=== PATIENT | male | born 1945 | race Caucasian/White ===

== ENCOUNTER 2019-06-01 15:03 | Emergency (ER) | payer MEDICARE ==
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
== END 2019-06-01 17:45 | disposition home or self-care (01) ==
LOC: ERS 15:03
DX: M54.5 Low back pain (principal); M54.2 Cervicalgia; E11.9 Type 2 diabetes mellitus without complications; F32.9 Major depressive disorder, single episode, unspecified; V43.62XA Car passenger injured in collision with other type car in traffic accident, initial encounter
CPT/HCPCS: 70450; 72125; 72131; 93005

== ENCOUNTER 2019-10-21 14:08 | Inpatient (IN) | payer MEDICARE, OTHER ==
--- NOTE | 2019-10-21 14:30 | RAD ---
EXAM: CHEST ONE VIEW HISTORY: Fever COMPARISON: None FINDINGS: Dual lead left subclavian AICD device is noted. Median sternotomy wires are present. Cardiac fat pad is seen in the left lung base of the cardiac silhouette is prominent but also magnified by projection. Pulmonary vasculature is within normal limits. No consolidation or pleural fluid is seen. There is suggestion of remote bilateral rib fractures bilaterally. IMPRESSION: No acute cardiopulmonary process.
[2019-10-21 14:33] LABS: Base Excess-Venous -0.3 mmol/L (-2.0 to 3.0); Bicarbonate (HCO3v) 22.9 mmol/L (22.0-28.0); CO2 Tension (PvCO2) 32.2 mmHg (40.0-50.0); Calcium, Ionized 1.04 mmol/L (See Comments:); Chloride 100 mmol/L (98-107); Hemoglobin - Calc 12.5 g/dL (14.0-18.0); Sodium 137 mmol/L (138-145); T. Carbon Dioxide 23.9 mmol/L (22.0-28.0); vO2 Saturation-calc 89.5 % (60.0-85.0)
[2019-10-21] MEDS ORDERED: Cefepime 2 GM VIAL ONE (14:44)
[2019-10-21 14:49] LABS: INR-International Normal Ratio 1.8; PTT 35.3 SEC (22.9-36.1); Prothrombin Time 20.6 SEC (12.0-14.7)
[2019-10-21 14:52] LABS: #Basophils 0.1 thou/uL (0.0-0.2); #Lymphocytes 0.5 thou/uL (1.20-3.40); #Monocytes 0.4 thou/uL (0.11-0.59); %Basophils 0.7 % (0.0-1.0); %Eosinophils 0.2 % (0.0-10.0); %Lymphocytes 3.1 % (21.0-51.0); %Monocytes 2.5 % (0.0-10.0); %Neutrophils 93.6 % (42.0-75.0); Hemoglobin 12.1 g/dL (14.0-18.0); Mean Corpuscular HGB CONC 30.3 g/dL (32.0-36.0); Mean Corpuscular Hemoglobin 31.7 pg (27.0-31.0); Mean Platelet Volume 10.6 fL (7.4-10.4); Platelet Count 114 thou/uL (130-400); RBC Distribution Width 13.4 % (11.5-14.5); Red Blood Cell (RBC) Count 3.81 mill/uL (4.70-6.10); White Blood Cell (WBC) Count 17.1 thou/uL (4.8-10.8)
[2019-10-21 15:06] LABS: ALT (SGPT) 24 U/L (8-55); AST (SGOT) 43 U/L (5-34); Albumin 3.7 g/dL (3.4-4.8); Alkaline Phosphatase 120 U/L (40-110); Anion Gap 21 mmol/L (10-20); BUN (Urea Nitrogen) 38 mg/dL (8.4-25.7); Bilirubin, Total 1.9 mg/dL (0.2-1.2); Calc. Creatinine Clearance 0 mL/min (70-130); Calcium 9.2 mg/dL (7.8-10.44); Carbon Dioxide 22 mmol/L (23-31); Chloride 99 mmol/L (98-107); Estimated GFR-MDRD 35; Globulin 4.2 g/dL (2.4-3.5); Glucose 411 mg/dL (83-110); Potassium 4.3 mmol/L (3.5-5.1); Protein, Total 7.9 g/dL (5.8-8.1); Sodium 138 mmol/L (136-145)
[2019-10-21 15:10] LABS: MDiff Complete? YES; Macrocytosis SLIGHT = 6-15 cells (100X) (0-5/hpf); Platelet Morphology Comment Appears Decreased; Polychromasia SLIGHT = 2-3 cells (100X) (0-2/hpf)
[2019-10-21] MEDS ORDERED: diphenhydrAMINE 25 MG CAP ONE (15:58)
[2019-10-21 16:08] LABS: Bilirubin Negative (Negative); Blood, Urine Negative (Negative); Clarity Clear (Clear); Glucose, Urine (Dipstick) Greater than 1000 mg/dL (Negative); Leukocyte Negative Leu/uL (Negative); Nitrite Negative (Negative); Protein, Urine (Dipstick) 20 mg/dL (Neg-Trace); Urobilinogen Normal mg/dL (Less than 2)
[2019-10-21 17:49] LABS: Lactic Acid 3.8 mmol/L (0.5-2.2)
[2019-10-21] MEDS ORDERED: Fentanyl 100 MCG/2 ML VIAL ONE (17:55)
[2019-10-21 19:08] VITALS: BMI 50.2
[2019-10-21] MEDS ORDERED: Dextrose 5% in Water 1,000 ML IV PRN (20:37)
[2019-10-21] MEDS ORDERED: Ondansetron PF 4 MG/2 ML Vial IVP PRN (20:37)
[2019-10-21] MEDS ORDERED: Ondansetron ODT 4 MG TAB PO PRN (20:37)
[2019-10-21] MEDS ORDERED: Dextrose 50% Abboject 50 ML SYRINGE SLOW IVP PRN (20:37)
[2019-10-21] MEDS ORDERED: Acetaminophen 325 MG TAB PO PRN (20:37)
[2019-10-21] MEDS ORDERED: HumaLOG 300 UNITS/3 ML VIAL SC PRN ×2 (20:37)
[2019-10-21] MEDS ORDERED: Acetaminophen 650 MG Suppository PR PRN (20:37)
[2019-10-21] MEDS ORDERED: traMADol HCl 50 MG TAB PO PRN (20:40)
[2019-10-21] MEDS ORDERED: Sodium Chloride 0.9% 1,000 ML IV SCH (20:45)
[2019-10-21] MEDS ORDERED: Atorvastatin Calcium 20 MG TAB PO SCH (21:00)
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
[2019-10-21] MEDS: diphenhydrAMINE 25 MG CAP PO PRN (21:44)
[2019-10-21] MEDS: Insulin Glargine 70 UNITS in Pre-Filled Syringe 1 EACH SC SCH (22:45)
[2019-10-21] MEDS: Apixaban 5 MG TAB PO SCH (22:45)
[2019-10-21] MEDS: Famotidine/PF 20 mg/2ml Vial SLOW IVP SCH (22:45)
[2019-10-21] MEDS: Sodium Chloride 0.9% 1,000 ML IV SCH (22:47)
--- NOTE | 2019-10-21 22:52 | CT ---
EXAM: CT Lower Ext Lt WO Con DATE: 10/21/2019 8:22 PM INDICATION: Evaluate for osteomyelitis of the left lower extremity; erythema and swelling of the ent jabire left lower extremity COMPARISON: None. FINDING: There is extensive skin thickening involving the lower abdominal wall pannus suspicious for panniculitis. There is prominent reticulation and edema involving the left lower extremity subcutaneous fat. There is prominent muscular atrophy of the musculature of the left lower extremity, particularly the left hamstrings and foreleg musculature. There is postprocedural change of a partial ostectomy involving the calcaneus. There is extensive surgical fixation of prior fractures of the left lower extremity. There is a healed instrumented left hip fracture. There is a retrograde intramedullary veronika within the left femur with surrounding periprosthetic lucency. There is a hypertro phic nonunion involving the distal left femoral shaft. There is a healed instrumented proximal tibia and distal tibia fractures. There is healed instrumented distal fibular fracture. Prominent deg enerative changes seen involving the left foot with diffuse osteopenia. IMPRESSION: 1. Extensive skin thickening and left lower extremity edema can be seen with cellulitis. 2. 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 There is prominent lucency surrounding the retrograde intramedullary veronika present within the left femur which can be seen with loosening or infection. 3. Healed instrumented left hip fracture, left tibia and fibula fractures. 4. Partial ostectomy of the calcaneus. 5. Moderate lower abdominal wall panniculitis
[2019-10-22] MEDS: Cefepime 2 GM in Sodium Chloride 0.9% 100 ML IVPB SCH ×2 (02:07→13:35)
[2019-10-22] MEDS: HYDROcodone/Acetaminophen 7.5/325 mg Tablet PO PRN ×4 (02:08→20:54)
[2019-10-22] MEDS: Vancomycin HCl 750 MG in Sodium Chloride 0.9% 250 ML 250 ML IVPB SCH ×2 (03:27→15:52)
[2019-10-22] MEDS ORDERED: Vancomycin HCl 1.75 GM in Sodium Chloride 0.9% 500 ML IVPB SCH (04:00)
[2019-10-22 04:14] LABS: #Lymphocytes 0.8 thou/uL (1.20-3.40); #Monocytes 0.7 thou/uL (0.11-0.59); #Neutrophils 13.9 thou/uL (1.40-6.50); %Basophils 0.1 % (0.0-1.0); %Eosinophils 0.2 % (0.0-10.0); %Lymphocytes 5.2 % (21.0-51.0); %Monocytes 4.7 % (0.0-10.0); %Neutrophils 89.8 % (42.0-75.0); Hemoglobin 11.7 g/dL (14.0-18.0); Mean Corpuscular HGB CONC 31.6 g/dL (32.0-36.0); Mean Corpuscular Hemoglobin 33.4 pg (27.0-31.0); Mean Platelet Volume 10.7 fL (7.4-10.4); Platelet Count 102 thou/uL (130-400); RBC Distribution Width 13.5 % (11.5-14.5); Red Blood Cell (RBC) Count 3.49 mill/uL (4.70-6.10); White Blood Cell (WBC) Count 15.5 thou/uL (4.8-10.8)
[2019-10-22 04:21] LABS: Lactic Acid 2.7 mmol/L (0.5-2.2)
[2019-10-22 04:28] LABS: Anion Gap 13 mmol/L (10-20); BUN (Urea Nitrogen) 36 mg/dL (8.4-25.7); Calc. Creatinine Clearance 94 mL/min (70-130); Calcium 8.9 mg/dL (7.8-10.44); Carbon Dioxide 24 mmol/L (23-31); Chloride 103 mmol/L (98-107); Estimated GFR-MDRD 44; Glucose 421 mg/dL (83-110); Potassium 4.1 mmol/L (3.5-5.1); Sodium 136 mmol/L (136-145)
[2019-10-22] MEDS: HumaLOG 300 UNITS/3 ML VIAL SC PRN ×2 (05:24→12:08)
[2019-10-22] MEDS: Famotidine/PF 20 mg/2ml Vial SLOW IVP SCH (08:35)
[2019-10-22] MEDS: Apixaban 5 MG TAB PO SCH ×2 (08:35→20:52)
[2019-10-22] MEDS: HumaLOG 300 UNITS/3 ML VIAL SC SCH ×3 (08:36→16:49)
[2019-10-22] MEDS: Insulin Glargine 70 UNITS in Pre-Filled Syringe 1 EACH SC SCH ×2 (08:39→21:01)
[2019-10-22] MEDS ORDERED: Collagenase 250 UNITS/GM Ointment 30 GM TUBE TOP SCH (09:00)
[2019-10-22] MEDS ORDERED: Ferrous Sulfate 325 MG TAB PO SCH (09:00)
[2019-10-22] MEDS: diphenhydrAMINE 25 MG CAP PO PRN ×3 (09:40→20:53)
[2019-10-22] MEDS ORDERED: Artificial Tears 18 DROP/0.9 ML EA EYE PRN ×2 (11:44→17:54)
[2019-10-22] MEDS ORDERED: Cepastat Lozenges 1 LOZ PO PRN ×2 (11:44→17:54)
[2019-10-22] MEDS ORDERED: Loperamide HCl 2 MG CAP PO PRN ×2 (11:44→17:55)
[2019-10-22] MEDS ORDERED: Sodium Chloride 0.65% Nasal 44 ML BOT EA NARE PRN ×2 (11:44→17:55)
[2019-10-22] MEDS ORDERED: Bisacodyl 10 MG SUPP PR PRN ×2 (11:44→17:54)
[2019-10-22] MEDS ORDERED: hydrALAZINE 20 MG/ML VIAL SLOW IVP PRN ×2 (11:44→17:55)
[2019-10-22] MEDS ORDERED: Senokot S 8.6-50 MG TAB PO PRN ×2 (11:44→17:55)
[2019-10-22] MEDS ORDERED: Diabetic Tussin 200 MG/10 ML UDCUP PO PRN ×2 (11:44→17:55)
[2019-10-22] MEDS ORDERED: Nystatin Powder 15 GM BOT TOP PRN ×2 (11:45→17:55)
--- NOTE | 2019-10-22 13:31 | PDOC.HOSPP ---
- Subjective Encounter Date: 10/22/19 Encounter Time: 10:45 Subjective: Patient seen and examined. No new complaints. No overnight events - Objective Vital Signs & Weight: Vital Signs (12 hours) Temp Pulse Resp BP Pulse Ox Pulse Ox 10/22/19 11:46 97.6 F 76 16 107/65 96 10/22/19 09:03 97 10/22/19 08:58 97 10/22/19 07:44 98.4 F 90 16 104/52 L 97 10/22/19 05:54 100.6 F H 91 18 117/61 95 Weight Admit Weight 340 lb Weight 340 lb 2 oz I&O: 10/21/19 10/22/19 10/23/19 06:59 06:59 06:59 Intake Total 1580 Output Total 200 Balance 1380 Result Diagrams: 10/22/19 03:51 10/22/19 03:51 Additional Labs: Accuchecks 10/22/19 10/22/19 10/21/19 11:53 05:22 21:28 POC Glucose 324 H 392 H 439 H Radiology Reviewed by me: Yes EKG Reviewed by me: Yes Hospitalist ROS - Review of Systems Constitutional: reports: fever, weakness. denies: chills, sweats, malaise, other ENT: denies: ear pain, ear discharge, nose pain, nose discharge, nose congestion , mouth pain, mouth swelling, throat pain, throat swelling, other Respiratory: denies: cough, dry, shortness of breath, hemoptysis, SOB with excertion, pleuritic pain, sputum, wheezing, other Cardiovascular: denies: chest pain, palpitations, orthopnea, paroxysmal noc. dyspnea, edema, light headedness, other Gastrointestinal: denies: nausea, vomiting, abdominal pain, diarrhea, constipation, melena, hematochezia, other Genitourinary: denies: dysuria, frequency, incontinence, hematuria, retention, other Musculoskeletal: reports: leg pain. denies: neck pain, shoulder pain, arm pain , back pain, hand pain, foot pain, other Skin: denies: rash, lesions, chance, bruising, other - Medication Medications: Active Medications Generic Name Dose Route Start Last Admin Trade Name Freq PRN Reason Stop Dose Admin Acetaminophen 650 mg 10/21/19 20:37 10/22/19 05:59 Tylenol PO 650 mg Q4H PRN Administration Headache/Fever/Mild Pain (1-3) Hydrocodone Bitart/Acetaminophen 1 tab 10/21/19 20:34 10/22/19 08:35 [place] 7.5/325 PO 1 tab Q4H PRN Administration Moderate to Severe Pain (6-10) Apixaban 5 mg 10/21/19 21:00 10/22/19 08:35 Eliquis PO 5 mg BID NEGRITA Administration Atorvastatin Calcium 20 mg 10/21/19 21:00 10/21/19 22:45 Lipitor PO 20 mg HS NEGRITA Administration Collagenase 0 gm 10/22/19 09:00 10/22/19 12:14 Santyl 250 Units/Gram Ointment TOP Not Given DAILY NEGRITA Diphenhydramine HCl 25 mg 10/21/19 20:33 10/22/19 09:40 Benadryl PO 25 mg Q4H PRN Administration Itching Ferrous Sulfate 325 mg 10/22/19 09:00 10/22/19 08:35 Feosol PO 325 mg DAILY NEGRITA Administration Cefepime HCl 2 gm/ Sodium 100 mls @ 200 mls/hr 10/22/19 02:00 10/22/19 02:07 Chloride IVPB 100 mls 0200,1400 NEGRITA Administration Insulin Glargine 70 units/ 0.7 mls @ 0 mls/hr 10/21/19 21:00 10/22/19 08:39 Miscellaneous Medication SC 0.7 mls BID NEGRITA Administration Sodium Chloride 1,000 mls @ 60 mls/hr 10/21/19 21:33 10/21/19 22:47 Normal Saline 0.9% IV 1,000 mls .[id number] NEGRITA Administration Vancomycin HCl 750 mg/ Sodium 250 mls @ 250 mls/hr 10/22/19 04:00 10/22/19 03 :27 Chloride IVPB 250 mls 0400,1600 NEGRITA Administration Insulin Human Lispro 0 units 10/21/19 20:37 10/21/19 22:45 Humalog SC 5 unit .BEDTIME SLIDING SC PRN Administration Bedtime Correctional Scale Insulin Human Lispro 60 units 10/22/19 07:30 10/22/19 12:08 Humalog SC 60 unit AC NEGRITA Administration Insulin Human Lispro 0 units 10/21/19 20:42 10/22/19 12:08 Humalog SC 11 unit .AGGRESSIVE SLIDING PRN Administration Aggressive Correctional Scale Metoprolol Succinate 25 mg 10/22/19 09:00 10/22/19 08:35 Toprol Xl PO 25 mg DAILY NEGRITA Administration Sodium Chloride 10 ml 10/21/19 20:37 10/22/19 08:41 Flush - Normal Saline IVF 10 ml PRN PRN Administration Saline Flush - Exam General Appearance: NAD, awake alert Eye: PERRL, anicteric sclera ENT: normocephalic atraumatic, no oropharyngeal lesions Neck: supple, symmetric, no JVD, no thyromegaly Heart: RRR, no murmur, no gallops, no rubs Respiratory: CTAB, no wheezes, no rales, no ronchi Gastrointestinal: soft, non-tender, non-distended, normal bowel sounds Gastrointestinal - other findings: morbid obesity+ Extremities: no edema Extremities - other findings: left leg cellulitis Skin: normal turgor, no lesions Musculoskeletal: normal tone, normal strength Psychiatric: normal affect, normal behavior Hosp A/P (1) Sepsis Code(s): A41.9 - SEPSIS, UNSPECIFIED ORGANISM Status: Acute Qualifiers: Sepsis acute organ dysfunction status: with acute organ dysfunction Severe sepsis acute organ dysfunction type: acute renal failure Severe sepsis shock status: without septic shock (2) Acute worsening of stage 3 chronic kidney disease Code(s): N18.3 - CHRONIC KIDNEY DISEASE, STAGE 3 (MODERATE) Status: Acute (3) Wound of foot Code(s): S91.309A - UNSPECIFIED OPEN WOUND, UNSPECIFIED FOOT, INITIAL ENCOUNTER Status: Acute (4) Left leg cellulitis Code(s): L03.116 - CELLULITIS OF LEFT LOWER LIMB Status: Acute (5) Hyperglycemia due to type 2 diabetes mellitus Code(s): E11.65 - TYPE 2 DIABETES MELLITUS WITH HYPERGLYCEMIA Status: Acute (6) Lactic acidosis Code(s): E87.2 - ACIDOSIS Status: Acute (7) Morbid obesity with BMI of 50.0-59.9, adult Code(s): E66.01 - MORBID (SEVERE) OBESITY DUE TO EXCESS CALORIES; Z68.43 - BODY MASS INDEX (BMI) 50.0-59.9, ADULT Status: Chronic (8) BLAYNE on CPAP Code(s): G47.33 - OBSTRUCTIVE SLEEP APNEA (ADULT) (PEDIATRIC); Z99.89 - DEPENDENCE ON OTHER ENABLING MACHINES AND DEVICES Status: Chronic (9) Anxiety and depression Code(s): F41.9 - ANXIETY DISORDER, UNSPECIFIED; F32.9 - MAJOR DEPRESSIVE DISORDER, SINGLE EPISODE, UNSPECIFIED Status: Chronic (10) Atrial fibrillation Code(s): I48.91 - UNSPECIFIED ATRIAL FIBRILLATION Status: Chronic Qualifiers: Atrial fibrillation type: paroxysmal Qualified Code(s): I48.0 - Paroxysmal atrial fibrillation (11) Macrocytic anemia Code(s): D53.9 - NUTRITIONAL ANEMIA, UNSPECIFIED Status: Chronic (12) Chronic anticoagulation Code(s): Z79.01 - GROUP HOME (CURRENT) USE OF ANTICOAGULANTS Status: Chronic - Plan old records reviewed/req, plan discussed w/ family, continue antibiotics 10/22/19 continue cefepime and vancomycin ID consulted follow culture home medication reconciled discussed with add folic acid and vitamin B12 repeat labs tomorrow wound care
[2019-10-22] MEDS: Sodium Chloride 0.9% 1,000 ML IV SCH ×3 (14:50→21:00)
[2019-10-22] MEDS ORDERED: cefTRIAXone\\ROCEPHIN 2 GM in Sodium Chloride 0.9% 100 ML IVPB SCH (17:30)
[2019-10-22] MEDS ORDERED: Dextrose 50% Abboject 50 ML SYRINGE SLOW IVP PRN (17:49)
[2019-10-22] MEDS ORDERED: Acetaminophen 325 MG TAB PO PRN (17:49)
[2019-10-22] MEDS ORDERED: Dextrose 5% in Water 1,000 ML IV PRN (17:49)
[2019-10-22] MEDS ORDERED: HumaLOG 300 UNITS/3 ML VIAL SC PRN ×2 (17:49→17:52)
[2019-10-22] MEDS ORDERED: Ondansetron ODT 4 MG TAB PO PRN (17:50)
[2019-10-22] MEDS ORDERED: Ondansetron PF 4 MG/2 ML Vial IVP PRN (17:50)
[2019-10-22] MEDS ORDERED: traMADol HCl 50 MG TAB PO PRN (17:52)
[2019-10-22] MEDS: cefTRIAXone\\ROCEPHIN 2 GM in Sodium Chloride 0.9% 100 ML IVPB SCH (18:16)
[2019-10-22] MEDS: Atorvastatin Calcium 20 MG TAB PO SCH (20:52)
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
[2019-10-23] MEDS: diphenhydrAMINE 25 MG CAP PO PRN ×3 (02:11→20:26)
[2019-10-23] MEDS: HYDROcodone/Acetaminophen 7.5/325 mg Tablet PO PRN ×4 (02:12→20:27)
[2019-10-23] MEDS: HumaLOG 300 UNITS/3 ML VIAL SC SCH ×3 (07:30→18:03)
[2019-10-23] MEDS ORDERED: Cyanocobalamin (Vitamin B-12) 1,000 MCG TAB PO SCH (09:00)
[2019-10-23] MEDS ORDERED: Saccharomyces boulardii 250 MG CAP PO SCH (09:00)
[2019-10-23] MEDS ORDERED: Folic Acid 1 MG TAB PO SCH (09:00)
[2019-10-23] MEDS: Saccharomyces boulardii 250 MG CAP PO SCH (09:11)
[2019-10-23] MEDS: Ferrous Sulfate 325 MG TAB PO SCH (09:11)
[2019-10-23] MEDS: Insulin Glargine 70 UNITS in Pre-Filled Syringe 1 EACH SC SCH ×2 (09:12→20:29)
[2019-10-23] MEDS: Folic Acid 1 MG TAB PO SCH (09:12)
[2019-10-23] MEDS: Apixaban 5 MG TAB PO SCH ×2 (09:12→20:27)
[2019-10-23] MEDS: Cyanocobalamin (Vitamin B-12) 1,000 MCG TAB PO SCH (09:12)
[2019-10-23] MEDS: Collagenase 250 UNITS/GM Ointment 30 GM TUBE TOP SCH (09:13)
--- NOTE | 2019-10-23 11:20 | PDOC.HOSPP ---
- Subjective Encounter Date: 10/23/19 Encounter Time: 10:00 Subjective: Patient seen and examined. No new complaints. No overnight events - Objective Vital Signs & Weight: Vital Signs (12 hours) Temp Pulse Resp BP Pulse Ox 10/23/19 09:00 98 10/23/19 07:39 97.5 F L 70 20 159/84 H 98 10/23/19 03:59 98.1 F 72 17 112/64 96 Weight Admit Weight 340 lb Weight 340 lb 2 oz I&O: 10/22/19 10/23/19 10/24/19 06:59 06:59 06:59 Intake Total 1580 2520 Output Total 200 1200 Balance 1380 1320 Result Diagrams: 10/22/19 03:51 10/22/19 03:51 Additional Labs: Accuchecks 10/23/19 10/22/19 10/22/19 04:06 19:52 16:51 POC Glucose 152 H 118 H 136 H 10/22/19 11:53 POC Glucose 324 H Hospitalist ROS - Review of Systems Constitutional: denies: fever, chills, sweats, weakness, malaise, other Respiratory: denies: cough, dry, shortness of breath, hemoptysis, SOB with excertion, pleuritic pain, sputum, wheezing, other Cardiovascular: denies: chest pain, palpitations, orthopnea, paroxysmal noc. dyspnea, edema, light headedness, other Gastrointestinal: denies: nausea, vomiting, abdominal pain, diarrhea, constipation, melena, hematochezia, other Genitourinary: denies: dysuria, frequency, incontinence, hematuria, retention, other Musculoskeletal: reports: leg pain. denies: neck pain, shoulder pain, arm pain , back pain, hand pain, foot pain, other - Medication Medications: Active Medications Generic Name Dose Route Start Last Admin Trade Name Freq PRN Reason Stop Dose Admin Hydrocodone Bitart/Acetaminophen 1 tab 10/22/19 17:49 10/23/19 09:09 [place] 7.5/325 PO 1 tab Q4H PRN Administration Moderate to Severe Pain (6-10) Apixaban 5 mg 10/22/19 21:00 10/23/19 09:12 Eliquis PO 5 mg BID NEGRITA Administration Atorvastatin Calcium 20 mg 10/22/19 21:00 10/22/19 20:52 Lipitor PO 20 mg HS NEGRITA Administration Cholecalciferol 1,000 units 10/23/19 09:00 10/23/19 09:11 Vitamin D3 PO 1,000 units DAILY NEGRITA Administration Collagenase 0 gm 10/23/19 09:00 10/23/19 09:13 Santyl 250 Units/Gram Ointment TOP 1 gm DAILY NEGRITA Administration Cyanocobalamin 1,000 mcg 10/23/19 09:00 10/23/19 09:12 Vitamin B-12 PO 1,000 mcg DAILY NEGRITA Administration Diphenhydramine HCl 25 mg 10/22/19 17:48 10/23/19 09:09 Benadryl PO 25 mg Q4H PRN Administration Itching Ferrous Sulfate 325 mg 10/23/19 09:00 10/23/19 09:11 Feosol PO 325 mg DAILY NEGRITA Administration Folic Acid 1 mg 10/23/19 09:00 10/23/19 09:12 Folvite PO 1 mg DAILY NEGRITA Administration Insulin Glargine 70 units/ 0.7 mls @ 0 mls/hr 10/22/19 21:00 10/23/19 09:12 Miscellaneous Medication SC 0.7 mls BID NEGRITA Administration Sodium Chloride 1,000 mls @ 60 mls/hr 10/22/19 18:00 10/22/19 21:00 Normal Saline 0.9% IV 1,000 mls .[id number] NEGRITA Administration Ceftriaxone Sodium 2 gm/ 100 mls @ 200 mls/hr 10/22/19 18:00 10/22/19 18:16 Sodium Chloride IVPB 100 mls Q24HR NEGRITA Administration Insulin Human Lispro 60 units 10/23/19 07:30 10/23/19 07:30 Humalog SC Not Given AC [facility] Metoprolol Succinate 25 mg 10/23/19 09:00 10/23/19 09:11 Toprol Xl PO 25 mg DAILY NEGRITA Administration Pantoprazole Sodium 40 mg 10/23/19 09:00 10/23/19 09:10 Protonix PO 40 mg DAILY NEGRITA Administration Saccharomyces Boulardii 250 mg 10/23/19 09:00 10/23/19 09:11 Florastor PO 250 mg DAILY NEGRITA Administration - Exam General Appearance: NAD, awake alert Eye: PERRL, anicteric sclera ENT: normocephalic atraumatic, no oropharyngeal lesions Neck: supple, symmetric, no JVD Heart: RRR, no murmur, no gallops, no rubs Respiratory: CTAB, no wheezes, no rales, no ronchi Gastrointestinal: soft, non-tender, non-distended, normal bowel sounds Gastrointestinal - other findings: morbid obesity+ Extremities - other findings: left leg cellulitis noted Skin: normal turgor, no lesions Neurological: no focal deficits Musculoskeletal: normal tone, normal strength Psychiatric: normal affect, normal behavior Hosp A/P (1) Sepsis Code(s): A41.9 - SEPSIS, UNSPECIFIED ORGANISM Status: Acute Qualifiers: Sepsis acute organ dysfunction status: with acute organ dysfunction Severe sepsis acute organ dysfunction type: acute renal failure Severe sepsis shock status: without septic shock (2) Acute worsening of stage 3 chronic kidney disease Code(s): N18.3 - CHRONIC KIDNEY DISEASE, STAGE 3 (MODERATE) Status: Acute (3) Wound of foot Code(s): S91.309A - UNSPECIFIED OPEN WOUND, UNSPECIFIED FOOT, INITIAL ENCOUNTER Status: Acute (4) Left leg cellulitis Code(s): L03.116 - CELLULITIS OF LEFT LOWER LIMB Status: Acute (5) Hyperglycemia due to type 2 diabetes mellitus Code(s): E11.65 - TYPE 2 DIABETES MELLITUS WITH HYPERGLYCEMIA Status: Acute (6) Lactic acidosis Code(s): E87.2 - ACIDOSIS Status: Acute (7) Morbid obesity with BMI of 50.0-59.9, adult Code(s): E66.01 - MORBID (SEVERE) OBESITY DUE TO EXCESS CALORIES; Z68.43 - BODY MASS INDEX (BMI) 50.0-59.9, ADULT Status: Chronic (8) BLAYNE on CPAP Code(s): G47.33 - OBSTRUCTIVE SLEEP APNEA (ADULT) (PEDIATRIC); Z99.89 - DEPENDENCE ON OTHER ENABLING MACHINES AND DEVICES Status: Chronic (9) Anxiety and depression Code(s): F41.9 - ANXIETY DISORDER, UNSPECIFIED; F32.9 - MAJOR DEPRESSIVE DISORDER, SINGLE EPISODE, UNSPECIFIED Status: Chronic (10) Atrial fibrillation Code(s): I48.91 - UNSPECIFIED ATRIAL FIBRILLATION Status: Chronic Qualifiers: Atrial fibrillation type: paroxysmal Qualified Code(s): I48.0 - Paroxysmal atrial fibrillation (11) Macrocytic anemia Code(s): D53.9 - NUTRITIONAL ANEMIA, UNSPECIFIED Status: Chronic (12) Chronic anticoagulation Code(s): Z79.01 - DETENTION (CURRENT) USE OF ANTICOAGULANTS Status: Chronic - Plan old records reviewed/req, continue antibiotics 10/22/19 continue cefepime and vancomycin ID consulted follow culture home medication reconciled discussed with add folic acid and vitamin B12 repeat labs tomorrow wound care 10/23/19 continue rocephin as per ID follow culture, so far culture negative keep leg elevated
--- NOTE | 2019-10-23 16:40 | PRG ---
DATE OF SERVICE: 10/23/2019 SUBJECTIVE: He was having some testicular symptoms of he felt like there was distention and some tenderness. Breathing is okay. He is voiding without difficulty. No diarrhea. The left leg is less tender. OBJECTIVE: VITAL SIGNS: The T-max 100.6, currently 97.5; BP 159/84; pulse 70; respirations 20; O2 saturation 98%. SKIN: The left lower extremity cellulitis is improving. I would say about 40% improvement thus far. The scrotal tissue appears normal. It is a little bit tender, but no erythema. No distention/edema. Peripheral IV access. LUNGS: Clear. HEART: S1 and S2. Regular rate. ABDOMEN: Soft. Not distended. LABORATORY DATA: White cell count 15.5, hemoglobin 11, platelets 102, 89% neutrophils. The last chemistries from yesterday have been reviewed. Microbiology; no new information. No growth in blood cultures. ASSESSMENT AND DISCUSSION: Morbid obesity, mobility impairment, left nonunion fracture of distal femur, venous insufficiency, cellulitis of left lower extremity with significant improvement thus far, likely due to beta-hemolytic Streptococcus. The plan is to continue Rocephin currently and eventual transition to Keflex for discharge planning. Suppressive Pen-Vee K for a year after that, 250 twice daily. Job ID: [id number]
[2019-10-23] MEDS ORDERED: cefTRIAXone\\ROCEPHIN 2 GM in Sodium Chloride 0.9% 100 ML IVPB SCH (18:00)
[2019-10-23] MEDS: cefTRIAXone\\ROCEPHIN 2 GM in Sodium Chloride 0.9% 100 ML IVPB SCH (18:02)
[2019-10-23] MEDS: Sodium Chloride 0.9% 1,000 ML IV SCH (18:05)
[2019-10-23] MEDS: Atorvastatin Calcium 20 MG TAB PO SCH (20:27)
[2019-10-24] MEDS: Sodium Chloride 0.9% 1,000 ML IV SCH (05:15)
[2019-10-24] MEDS: HumaLOG 300 UNITS/3 ML VIAL SC SCH ×3 (07:49→13:00)
[2019-10-24] MEDS: Insulin Glargine 70 UNITS in Pre-Filled Syringe 1 EACH SC SCH (07:50)
[2019-10-24] MEDS: HYDROcodone/Acetaminophen 7.5/325 mg Tablet PO PRN (07:52)
[2019-10-24] MEDS: Saccharomyces boulardii 250 MG CAP PO SCH (07:53)
[2019-10-24] MEDS: Cyanocobalamin (Vitamin B-12) 1,000 MCG TAB PO SCH (07:53)
[2019-10-24] MEDS: Folic Acid 1 MG TAB PO SCH (07:53)
[2019-10-24] MEDS: Apixaban 5 MG TAB PO SCH (07:54)
[2019-10-24] MEDS: Ferrous Sulfate 325 MG TAB PO SCH (07:54)
[2019-10-24] MEDS ORDERED: Insulin Glargine 35 UNITS in Pre-Filled Syringe 1 EACH SC SCH (09:00)
[2019-10-24] MEDS ORDERED: Amlodipine 10 MG TAB PO SCH (10:00)
[2019-10-24] MEDS: Collagenase 250 UNITS/GM Ointment 30 GM TUBE TOP SCH (10:17)
[2019-10-24 11:33] VITALS: TEMP 97.8
[2019-10-24] MEDS: diphenhydrAMINE 25 MG CAP PO PRN ×2 (11:46→15:42)
[2019-10-24 14:18] VITALS: BP 167/54
[2019-10-24] MEDS ORDERED: hydrALAZINE 25 MG TAB PO SCH (15:00)
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
[2019-10-25] MEDS ORDERED: Amlodipine 10 MG TAB PO SCH (09:00)
--- NOTE | 2019-10-26 07:08 | PQF ---
FAINA MCLEOD GILBERT, CATHERINE [id number] CLINICAL DOCUMENTATION CLARIFICATION FORM: POST DISCHARGE Addendum to original discharge summary date: ____ Late entry note date: __ DATE: 10/26/2019 ATTN:CATHERINE DARLING Please exercise your independent, professional judgment in responding to the clarification form. Clinical indicators are provided on the bottom of this form for your review Please check appropriate box(s) to clarify if the following diagnosis has been ruled in or ruled out: Sepsis [ ] Ruled in diagnosis [ ] Continue to treat [ ] Resolved [ x ] Ruled out diagnosis [ ] Cannot rule out diagnosis [ ] Other diagnosis [ ] Unable to determine For continuity of documentation, please document condition throughout progress notes and discharge summary. Thank You. CLINICAL INDICATORS - SIGNS / SYMPTOMS / LABS - Severe sepsis - ED report, 10/21, Alexandria Rodriguez MD - Temp: 101 with SBP: 104- H&P, 10/21Jennyfer Ninoska - WBC: 17.1 H-H&P, 10/21, Christin Burger - Lactic acidosis secondary to left leg cellulitis -H&P, 10/21, Christin Burger - Sepsis acute organ dysfunctional state with acute organ dysfunction- Hospital PN, 10/22, Kim Francis MD RISK FACTORS - Recurrent cellulitis- DS, 10/24, Catherine Darling MD TREATMENTS - Vancomycin.IV- [facility], 10/21 - Rocephin.IV MAR 10/22 to 10/24 (This form is maintained as a part of the permanent medical record) [employer] [email or web address] [employer]. All Rights Reserved Kei [email or web address]
== END 2019-10-24 16:56 | disposition home or self-care (01) | DRG 603 ==
LOC: ERS 14:08 → T4-A 18:47 → UNDODISIN 10-22 17:22
PROVIDERS: ADMIT Internal Medicine; ATTEND Internal Medicine
DX: L03.116 Cellulitis of left lower limb (principal); E87.2 Acidosis; I42.9 Cardiomyopathy, unspecified; Z68.43 Body mass index [BMI] 50.0-59.9, adult; D69.6 Thrombocytopenia, unspecified; N18.3 Chronic kidney disease, stage 3 (moderate); B95.5 Unspecified streptococcus as the cause of diseases classified elsewhere; E66.01 Morbid (severe) obesity due to excess calories; W18.39XA Other fall on same level, initial encounter; I48.91 Unspecified atrial fibrillation; E11.65 Type 2 diabetes mellitus with hyperglycemia; F32.9 Major depressive disorder, single episode, unspecified; G47.33 Obstructive sleep apnea (adult) (pediatric); F41.9 Anxiety disorder, unspecified; D53.9 Nutritional anemia, unspecified; E11.649 Type 2 diabetes mellitus with hypoglycemia without coma; Z79.01 Long term (current) use of anticoagulants; Z79.4 Long term (current) use of insulin; Z99.3 Dependence on wheelchair; Z90.49 Acquired absence of other specified parts of digestive tract; Y92.091 Bathroom in other non-institutional residence as the place of occurrence of the external cause
CPT/HCPCS: 36415; 36416; 71045; 80048; 80053; 81003; 82330; 82803; 83605; 83880; 85025; 85610; 85730; 87040; 87086; 87804; 93005; 94760; J0692; J0696; J1815; J3010; J3370; J3490; J7050; Q0163; S0028